=== PATIENT | male | born 1985 | race Caucasian/White ===

== ENCOUNTER 2018-03-16 02:51 | Emergency (ER) | payer SELFPAY ==
--- NOTE | 2018-03-16 05:22 | ER Document Report ---
HPI - HPI Patient complains to provider of: toothache Pain Level: 4 Context: Patient is a a 33-year-old male presenting to the emergency department complaining of left upper tooth pain. Patient states he has had intermittent tooth pain all over for the last couple of years. Patient is unsure the last time he saw a dentist. Patient states he is usually able to take Tylenol at home for the pain but that did not help him this evening. Patient denies fever , chest pain, shortness of breath, nausea, vomiting, diarrhea, abdominal pain. Past medical history: SVT Medications: None Allergies: None Patient admits to everyday cigarette use, occasional EtOH use, occasional marijuana use. - CONSTITUTIONAL Constitutional: DENIES: Fever, Chills - EENT EENT: DENIES: Sore Throat, Ear Pain, Eye problems - NEURO Neurology: DENIES: Headache, Weakness, Vision blurred, Dizzinesss / Vertigo - CARDIOVASCULAR Cardiovascular: DENIES: Chest pain - RESPIRATORY Respiratory: DENIES: Trouble Breathing, Coughing - GASTROINTESTINAL Gastrointestinal: DENIES: Abdominal Pain, Black / Bloody Stools - URINARY Urinary: DENIES: Dysuria, Urgency, Frequency - MUSCULOSKELETAL Musculoskeletal: DENIES: Extremity pain Past Medical History - General Information source: Patient - Social History Smoking Status: Current Every Day Smoker Lives with: Family Family History: Reviewed & Not Pertinent Patient has suicidal ideation: No Patient has homicidal ideation: No Renal/ Medical History: Denies: Hx Peritoneal Dialysis Vertical Provider Document - CONSTITUTIONAL Agree With Documented VS: Yes Notes: GENERAL: Alert, interacts well. No acute distress. HEAD: Normocephalic, atraumatic. EYES: Pupils equal, round, and reactive to light. Extraocular movements intact. ENT: Oral mucosa moist, tongue midline. Obvious dental caries throughout entire dentition. Minor swelling to left upper gumline around tooth #15. No area of fluctuance or induration appreciated. Negative Flavio's angina. No facial swelling noted. NECK: Full range of motion. Supple. Trachea midline. LUNGS: Clear to auscultation bilaterally, no wheezes, rales, or rhonchi. No respiratory distress. HEART: Regular rate and rhythm. No murmur ABDOMEN: Soft, non-tender. Non-distended. Bowel sounds present in all 4 quadrants. EXTREMITIES: Moves all 4 extremities spontaneously. No edema, normal radial and dorsalis pedis pulses bilaterally. No cyanosis. BACK: no cervical, thoracic, lumbar midline tenderness. No saddle anesthesia, normal distal neurovascular exam. NEUROLOGICAL: Alert and oriented x3. Normal speech. [cranial nerves II through XII grossly intact]. PSYCH: Normal affect, normal mood. SKIN: Warm, dry, normal turgor. No rashes or lesions noted. - INFECTION CONTROL TRAVEL OUTSIDE OF THE [place] IN LAST 30 DAYS: No Course - Re-evaluation Re-evalutation: 03/16/18 05:21 Will give patient referral to dental clinic. Antibiotics as prescribed. Return precautions given. - Vital Signs Vital signs: Temp Pulse Resp BP Pulse Ox 97.6 F 86 18 98 03/16/18 03:09 03/16/18 03:09 03/16/18 03:09 03/16/18 03:09 Discharge - Discharge Clinical Impression: Toothache, Dental caries Condition: Stable Disposition: HOME, SELF-CARE Instructions: [facility], Penicillin V K ([facility]) Additional Instructions: [facility] [address], [address] As we discussed you should take antibiotics as prescribed. Follow-up with dental clinic, address given in this paperwork. Return to the emergency room for any worsening symptoms Prescriptions: Ketorolac Tromethamine [Toradol 10 mg Tablet] 10 mg PO Q8HP PRN #24 tablet PRN Reason: Penicillin V Potassium [Penicillin Vk 500 mg Tablet] 500 mg PO BID #20 tablet
[2018-03-16] MEDS ORDERED: KETOROLAC TROMETHAMINE 60 MG/2 ML SDV IM ONE (05:23)
[2018-03-16 05:53] VITALS: BP 130/75
== END 2018-03-16 05:44 | disposition home or self-care (01) ==
LOC: ER 02:51
DX: K02.9 Dental caries, unspecified (principal); F17.210 Nicotine dependence, cigarettes, uncomplicated
CPT/HCPCS: 99282; 96372; J1885